=== PATIENT | female | born 1980 | race Caucasian/White ===

== ENCOUNTER 2019-01-03 20:33 | Day surgery (SDC) | payer BC ==
[2019-01-03 21:03] VITALS: BMI 24.7
[2019-01-03 21:04] LABS: Amnisure Test No Membranes Rupture (No Rupture)
[2019-01-03 21:05] LABS: Amnisure Internal Control QC ACCEPTABLE (ACCEPTABLE)
--- NOTE | 2019-01-04 01:41 | SS ---
DATE OF ADMISSION: 01/03/2019 DATE OF DISCHARGE: 01/03/2019 REGULAR PHYSICIAN: Jeffery Conway DO, MS EVALUATING PHYSICIAN: Carlos Roman MD CHIEF COMPLAINT: Suspected leakage of fluid over the last 2 days. HISTORY OF PRESENT ILLNESS: Ms. Burns is a 38-year-old white G3, P3, with an estimated date of confinement of 02/17/2019, who presents complaining of suspected leakage of fluid over the last 2 days. She states she has also had irregular contractions. Of note is the fact that she has pelvic floor dysfunction and often leaks urine. She denies associated vaginal bleeding and she denies decreased movement. Her care has been with Sara Lucero, but she is scheduled for repeat section with Dr. Conway. PAST OBSTETRICAL HISTORY: section for twins secondary to placenta previa and abruptio. This was followed by a for which she sustained pelvic floor disruption. PAST MEDICAL HISTORY: None. PAST SURGICAL HISTORY: as above. CURRENT MEDICATIONS: vitamins and iron. ALLERGIES: PENICILLIN, WHICH GIVES HER HIVES. SOCIAL HISTORY: Denies tobacco or alcohol use. FAMILY HISTORY: Unremarkable. REVIEW OF SYSTEMS: She denies nausea, vomiting, fever, chills, or vaginal bleeding. PHYSICAL EXAMINATION: VITAL SIGNS: In triage, her vital signs are stable. She is afebrile. GENERAL: She is extremely pleasant and easy to elicit history from. ABDOMEN: Soft, nontender, and gravid. On sterile speculum exam, the cervix is closed and long. There is no fluid seen in the vault. No fluid is leaking from the cervix with cough, laugh, or strain. heart rate tracing is stable. Irregular contractions are seen initially, but with hydration, these dispersed. Her fibronectin is negative and her GUEST ROOM INSPECTOR-III returns negative. ASSESSMENT: 1. 33 and 4/7th week intrauterine . 2. No evidence of ruptured membranes. PLAN: The patient will be dismissed to home. She was given complete precautions. She states that she has a followup at [facility] within the next 2 weeks. Job ID: [id number]
== END 2019-01-03 22:59 | disposition home or self-care (01) ==
LOC: L&D/OP 20:33
PROVIDERS: ATTEND Obstetrics & Gynecology
DX: O99.89 Other specified diseases and conditions complicating pregnancy, childbirth and the puerperium (principal); N89.8 Other specified noninflammatory disorders of vagina; Z3A.33 33 weeks gestation of pregnancy; Z79.899 Other long term (current) drug therapy; Z88.0 Allergy status to penicillin
CPT/HCPCS: 84112; 87480; 87510; 87660

== ENCOUNTER 2019-02-11 05:33 | Inpatient (IN) | payer BC ==
[2019-02-11 06:35] LABS: Hemoglobin 12.2 g/dL (12.0-16.0); Mean Corpuscular HGB CONC 35.7 g/dL (32.0-36.0); Mean Corpuscular Hemoglobin 29.6 pg (27.0-31.0); Mean Corpuscular Volume 82.9 fL (78.0-98.0); Mean Platelet Volume 7.7 fL (7.4-10.4); Platelet Count 292 thou/uL (130-400); RBC Distribution Width 13.1 % (11.5-14.5); Red Blood Cell (RBC) Count 4.13 mill/uL (4.20-5.40); White Blood Cell (WBC) Count 7.8 thou/uL (4.8-10.8)
[2019-02-11 06:38] VITALS: BMI 25.7
[2019-02-11] MEDS: Lactated Ringer's 1,000 ML IV SCH ×3 (07:00→23:44)
[2019-02-11] MEDS ORDERED: Bicitra 30 ML UDCUP ONE (07:01)
[2019-02-11] MEDS ORDERED: Clindamycin/D5W 900 mg/50 ml Premix Bag ONE (07:01)
[2019-02-11] MEDS ORDERED: Bicitra 30 ML UDCUP PO SCH (07:15)
[2019-02-11] MEDS ORDERED: Clindamycin/D5W 900 MG in Premix Bag 1 BAG IVPB SCH (07:15)
[2019-02-11] MEDS ORDERED: Promethazine HCl 25 MG/ML VIAL IM PRN ×2 (07:23→09:03)
[2019-02-11] MEDS ORDERED: Ondansetron PF 4 MG/2 ML Vial IVP PRN ×3 (07:23→16:26)
[2019-02-11] MEDS ORDERED: hydrALAZINE 20 MG/ML VIAL SLOW IVP PRN ×2 (07:23→16:26)
[2019-02-11] MEDS ORDERED: Gentamicin Sulfate 120 MG in Premix Bag 1 BAG IVPB SCH (07:30)
[2019-02-11 07:31] LABS: Syphilis Antibody Nonreactive (Nonreactive); Syphilis Antibody Index 0.05 S/CO (<1.00 Non-Reactive)
[2019-02-11 07:32] LABS: HBSAg Index 0.21 S/CO (0-0.99); Hep B Surf Ag Non-Reactive S/CO (NonReactive)
--- NOTE | 2019-02-11 07:55 | PDOC.LDHP ---
Labor and Delivery H&P Chief complaint: contractions, scheduled section HPI: Patient arrived to the hospital at 0530 for scheduled repeat . However , through the night, she started having contractions that were painful. Just now she has noticed some mucus coming out. She is now considering a TOLAC since her body is trying on it's own. Current gestational age (weeks): 39 Dating criteria: last menstrual period Grav: 3 Para: 2 OB History Details: G1, IVF, Twins, LTCS at 30week, indicated by Placenta Previa, sentinel bleeding event G2 2016, IVF, at 41 wwek. 7lbs 6 oz. partial 3rd degree after Vaccume assisted vaginal delivery for prolonged 2nd stage. G3 2019, spontaneous conception, 39 week 1 day, current Current complications: other (Advanced maternal age) Abnormal US findings: No Current medications: pre-jessica vitamins Previous surgical history: low tranverse CS Allergies/Adverse Reactions: Allergies Allergy/AdvReac Type Severity Reaction Status Date / Time Penicillins Allergy Severe Anaphylaxis Verified 01/03/19 20:58 Social history: none - Physical Exam Vital signs reviewed and normal: yes General: breathing through contractions Heart: RRR Lungs: nonlabored breathing Abdomen: gravid FHT: category 1 (Baseline 135, moderate variability, +Accels, no decels.) [place] contractions every: Q 7 mins - Vaginal Exam cm dilated: 3 Effacement: 75% Station: -3 - OB Labs Blood type: B RH: positive Antibody Screen: negative HIV: negative RPR: negative HEPSAg: negative 1 hour GCT: negative GBS: negative Urine drug screen: negative Rubella: immune - Assessment L&D Assessment: term patient in labor TOLAC AROMed, mec - Plan Plan: admit to L&D -: Patient would now like to TOLAC and reassess at noon If patient has made significant cervical change, proceed with TOLAC If no significant change, will proceed with repeat Counseled on importance of epidural Dr. lakhani was notified
[2019-02-11] MEDS ORDERED: Fentanyl 4 mcg/Bup 0.1% Cadd 100 ML ONE (08:18)
[2019-02-11] MEDS ORDERED: Lidocaine 1.5%/Epinephrine 1:200,000 5 ML AMPUL IJ ONE (08:51)
[2019-02-11] MEDS ORDERED: Lactated Ringer's 500 ML IV PRN (09:03)
[2019-02-11] MEDS ORDERED: Naloxone HCl 0.4 mg/ml Vial IVP PRN ×2 (09:03)
[2019-02-11] MEDS ORDERED: Acetaminophen 325 MG TAB PO PRN (09:03)
[2019-02-11] MEDS ORDERED: ePHEDrine/0.9% NaCl/PF SYRINGE 50 mg/10 ml SLOW IVP PRN (09:03)
[2019-02-11] MEDS ORDERED: diphenhydrAMINE 50 MG/ML VIAL IVP PRN (09:03)
[2019-02-11] MEDS ORDERED: Communication Order-Pharmacy FS SCH (09:15)
[2019-02-11] MEDS ORDERED: Fentanyl 4 mcg/Bupivacaine 0.1% Cassette 100 ML EPIDURAL SCH (09:15)
[2019-02-11] MEDS ORDERED: NS / Oxytocin 40 units/1000ml 1,000 ML ONE (12:45)
[2019-02-11] MEDS ORDERED: Lidocaine 1% (PF) 30 ML VIAL ONE (12:45)
--- NOTE | 2019-02-11 14:35 | PDOC.LDHP ---
Labor and Delivery H&P Allergies/Adverse Reactions: Allergies Allergy/AdvReac Type Severity Reaction Status Date / Time Penicillins Allergy Severe Anaphylaxis Verified 01/03/19 20:58
[2019-02-11] MEDS ORDERED: Milk Of Magnesia 30 ML UDCUP PO PRN (16:26)
[2019-02-11] MEDS ORDERED: Methylergonovine 0.2 MG/ML VIAL IM PRN (16:26)
[2019-02-11] MEDS ORDERED: NS / Oxytocin 40 units/1000ml 1,000 ML IV SCH (16:26)
[2019-02-11] MEDS ORDERED: Adacel (T-DAP) 0.5 ML SYRINGE IM ONE (16:26)
[2019-02-11] MEDS ORDERED: Benzocaine-Menthol 82.5 ML CAN TOP PRN (16:26)
[2019-02-11] MEDS ORDERED: Bisacodyl 10 MG SUPP PR PRN (16:26)
[2019-02-11] MEDS ORDERED: HYDROcodone/Acetaminophen 5/325 mg Tablet PO PRN ×2 (16:26)
--- NOTE | 2019-02-11 17:30 | PDOC.OPDEL ---
OB Operative/Delivery Note Delivery Dr/Surgeon: Dina Lucero Assist: Dr. Ferrell Pre-Delivery Diagnosis: active labor Procedure/Post Delivery Dx: spontaneous vaginal delivery Weeks gestation: 39 Anesthesia: epidural - Findings A Sex: male Weight: 8 lb - 1 min: 7 - 5 min: 9 - Additional Findings/Plan Placenta delivered: spontaneous Repaired Obstetrical Laceration: 1st degree Estimated blood loss: 250mL Compilations/Other Findings: Decel to 40-60bpm with pushing, unresolved with scalp stimulation. Pt was +3 at the time of decel. Russ team called and Dr. Ferrell, OB hospitalist was called to room Infant recovered, pushing efforts continued, and pt delivery vaginally with 1st tearing noted Cord gas was collected Post delivery plan: routine recovery
[2019-02-11] MEDS: Ferrous Sulfate 325 MG TAB PO SCH (20:50)
[2019-02-11] MEDS: Docusate Calcium (SURFAK) 240 MG CAP PO SCH (20:51)
[2019-02-11] MEDS: Ibuprofen 800 MG TAB PO SCH (20:51)
[2019-02-12] MEDS: Ibuprofen 800 MG TAB PO SCH ×2 (06:08→14:10)
--- NOTE | 2019-02-12 08:23 | PDOC.PP ---
Post Progress Note Post Day #: 1 Subjective: Patient is doing well. Happy with . The perineal pain hit this morning and she ended up taking a stronger pain pill. She thinks she would still like to go home if she can keep her pain controlled at home. . PO intake tolerated: yes Flatus: yes Ambulation: yes Vital Signs (12 hours) Temp Pulse Resp BP Pulse Ox 02/12/19 08:09 97.0 F L 76 12 109/60 98 02/12/19 03:40 98.2 F 70 16 101/58 L 02/11/19 23:50 97.8 F 86 16 107/54 L Weight Weight 155 lb - Physical Examination General: NAD Respiratory: non-labored breathing Abdominal: lochia (minimal), no distention, appropriately TTP Fundus firm & at: -2 Extremities: negative homans (B) Skin: no rash Perineum: non- edematous. intact, no erythema Neurological: no gross focal deficits Psychiatric: A&Ox3, normal affect Result Diagrams: 02/11/19 06:16 Additional Labs: Post Labs Blood Type B POSITIVE 02/11/19 06:16 Hep Bs Antigen Non-Reactive S/CO (NonReactive) 02/11/19 06:16 (1) 39 weeks gestation of Code(s): Z3A.39 - 39 WEEKS GESTATION OF Status: Acute (2) Vaginal after () Code(s): O34.21 - MATERNAL CARE FOR SCAR FROM PREVIOUS * DO NOT USE * Status: Acute - Assessment/Plan A: now a s/p complicated by 1st degree vaginal laceration with NML PPD 31 exam. Breastfeedign P: routine care until discharge Discharge home at 24 hrs Rx for pain medicine to pharmacy 6 week visit Pelvic rest until Post visit.
[2019-02-12] MEDS ORDERED: Prenatal Vitamin 1 TAB PO SCH (09:00)
[2019-02-12] MEDS: Ferrous Sulfate 325 MG TAB PO SCH (09:38)
[2019-02-12] MEDS: Docusate Calcium (SURFAK) 240 MG CAP PO SCH (09:39)
[2019-02-12 11:50] VITALS: BP 107/58; TEMP 97.6
== END 2019-02-12 14:35 | disposition home or self-care (01) | DRG 807 ==
LOC: L&D/OP 05:33 → L&D 05:49 → 3SW 16:35
PROVIDERS: ADMIT Obstetrics & Gynecology; ATTEND Obstetrics & Gynecology
PROC: 10E0XZZ Delivery of Products of Conception, External Approach (ICD-10-PCS; principal; 2019-02-12)
PROC: 0HQ9XZZ Repair Perineum Skin, External Approach (ICD-10-PCS; 2019-02-12)
DX: O34.211 Maternal care for low transverse scar from previous cesarean delivery (principal); Z37.0 Single live birth; Z3A.39 39 weeks gestation of pregnancy; O70.0 First degree perineal laceration during delivery
CPT/HCPCS: 36415; 82805; 85027; 86780; 86850; 86900; 86901; 87340; J2001; J3490

== ENCOUNTER 2019-02-18 12:29 | Inpatient (IN) | payer BC ==
[2019-02-18 13:29] LABS: #Lymphocytes 0.7 thou/uL (1.20-3.40); #Monocytes 0.5 thou/uL (0.11-0.59); #Neutrophils 15.8 thou/uL (1.40-6.50); %Basophils 0.2 % (0.0-1.0); %Eosinophils 0.1 % (0.0-10.0); %Monocytes 3.2 % (0.0-10.0); %Neutrophils 92.5 % (42.0-75.0); Mean Corpuscular HGB CONC 34.9 g/dL (32.0-36.0); Mean Corpuscular Volume 82.9 fL (78.0-98.0); Mean Platelet Volume 6.5 fL (7.4-10.4); Platelet Count 351 thou/uL (130-400); Red Blood Cell (RBC) Count 4.14 mill/uL (4.20-5.40); White Blood Cell (WBC) Count 17.1 thou/uL (4.8-10.8)
[2019-02-18] MEDS ORDERED: Lidocaine 1% PF 5 ML VIAL ONE (13:37)
[2019-02-18] MEDS ORDERED: Ketorolac Tromethamine 30 MG/ML VIAL ONE (13:37)
[2019-02-18] MEDS ORDERED: Metoclopramide HCl 10 MG/2 ML VIAL ONE (13:37)
[2019-02-18] MEDS ORDERED: diphenhydrAMINE 50 MG/ML VIAL ONE (13:37)
[2019-02-18] MEDS ORDERED: methylPREDNISolone Sod Succ/PF 125 MG/2 ML VIAL ONE (13:37)
[2019-02-18] MEDS ORDERED: Lidocaine 1% (PF) 30 ML VIAL ONE (13:41)
[2019-02-18 13:50] LABS: ALT (SGPT) 15 U/L (8-55); AST (SGOT) 16 U/L (5-34); Albumin 3.9 g/dL (3.5-5.0); Alkaline Phosphatase 97 U/L (40-110); Anion Gap 14 mmol/L (10-20); BUN (Urea Nitrogen) 6 mg/dL (7.0-18.7); Bilirubin, Total 0.6 mg/dL (0.2-1.2); Calc. Creatinine Clearance 0 mL/min (70-130); Calcium 9.1 mg/dL (7.8-10.44); Carbon Dioxide 21 mmol/L (22-29); Chloride 104 mmol/L (98-107); Estimated GFR-MDRD 84; Globulin 3.4 g/dL (2.4-3.5); Glucose 99 mg/dL (70-105); Potassium 3.2 mmol/L (3.5-5.1); Protein, Total 7.3 g/dL (6.0-8.3); Sodium 136 mmol/L (136-145)
[2019-02-18 13:53] LABS: Bilirubin Negative (Negative); Blood, Urine 3+ (Negative); Clarity Clear (Clear); Glucose, Urine (Dipstick) Normal (Negative); Leukocyte 500 Leu/uL (Negative); Nitrite Negative (Negative); Protein, Urine (Dipstick) Negative (Neg-Trace); Squamous Epithelial 0-3 HPF (0-3); Transitional Epithelial 0-3 HPF (None Seen); Urobilinogen Normal mg/dL (Less than 2)
[2019-02-18 14:02] LABS: Bacteria/HPF None Seen HPF (None Seen)
[2019-02-18 15:15] LABS: CSF Source CSF; Clarity Clear (Clear); Color Of CSF Supernatant COLORLESS (Colorless); Tube # 2; Tube # 4; Unspun CSF Color COLORLESS (Colorless)
[2019-02-18 15:22] LABS: CSF Source CSF; Clarity Clear (Clear); Tube # 1
[2019-02-18] MEDS ORDERED: Vancomycin HCl 500 MG VIAL ONE (15:24)
[2019-02-18 15:29] LABS: CSF, Glucose 56 mg/dl (40-70); CSF, Protein 29 mg/dL (15-40)
[2019-02-18] MEDS ORDERED: Zolpidem Tartrate 5 MG TAB PO PRN (16:48)
[2019-02-18] MEDS ORDERED: Calcium Carbonate 500 MG ChewTAB PO PRN (16:48)
[2019-02-18] MEDS ORDERED: Ondansetron ODT 4 MG TAB PO PRN (16:48)
[2019-02-18] MEDS ORDERED: HYDROcodone/Acetaminophen 5/325 mg Tablet PO PRN ×2 (16:48)
[2019-02-18] MEDS ORDERED: Ondansetron PF 4 MG/2 ML Vial IVP PRN (16:48)
[2019-02-18] MEDS ORDERED: Sodium Chloride 0.9% 1,000 ML IV SCH (17:00)
[2019-02-18 18:49] VITALS: BMI 22.7
[2019-02-18] MEDS: Acetaminophen 500 MG TAB PO PRN (20:13)
[2019-02-18] MEDS: Famotidine 20 MG TAB PO SCH (20:13)
[2019-02-18] MEDS: Potassium Chloride 20 MEQ TAB PO SCH (20:14)
[2019-02-18] MEDS ORDERED: traMADol HCl 50 MG TAB PO PRN ×2 (20:38)
[2019-02-18] MEDS: Docusate Calcium (SURFAK) 240 MG CAP PO SCH (23:37)
[2019-02-18] MEDS: Ibuprofen 800 MG TAB PO SCH (23:37)
--- NOTE | 2019-02-19 01:10 | HP ---
CHIEF COMPLAINT: Fever, headache, breast pain. HISTORY OF PRESENT ILLNESS: This is a 38-year-old G3, P3, status post spontaneous vaginal delivery on 02/11/2019. She presented to the emergency department today with a severe headache since delivery as well as a fever of 103 and right breast pain. She reports that her lochia is normal. She denies any abdominal pain, chest pain, or other complaints. She reports that it has been painful to feed her baby for the last 4 days or so, but is unsure of when her symptoms on her breast started because her headache was so distracting and so severe. She reports that her headaches are worse when lying down and she also has some neck pain and low back pain. In the emergency department, she was evaluated and diagnosed with a spinal headache and mastitis and admitted to the TESTS SUPERINTENDENT service. Anesthesia did see her in the emergency department; however, they were uncomfortable doing a blood patch with her mastitis due to fear of bacteremia. Due to concerns for possible meningitis, an LP was performed and came back normal. REVIEW OF SYSTEMS: Negative for head, eyes, ears, nose, throat, cardiovascular, respiratory, GI, , neuropsych, musculoskeletal, skin, or constitutional symptoms other than mentioned above. PAST MEDICAL HISTORY: None. PAST SURGICAL HISTORY: Low-transverse x1. TESTS SUPERINTENDENT HISTORY: Her first was IVF twins with a low-transverse at 30 weeks due to placenta previa. Her second was also an IVF with a successful at 41 weeks. Her third delivery was a term spontaneous vaginal delivery. Her only complication was advanced maternal age. MEDICATIONS: None. ALLERGIES: PENICILLIN CAUSES ANAPHYLAXIS. SOCIAL HISTORY: Negative for tobacco, alcohol, or drug abuse. PHYSICAL EXAMINATION: VITAL SIGNS: Temperature 99.2, blood pressure 117/66, pulse 79, respiratory rate 20, O2 saturation 100% on room air. GENERAL: Awake, alert, no acute distress. CHEST: Nonlabored. ABDOMEN: Soft, nontender to palpation. BREASTS: Right breast with approximately 5 cm area of erythema and induration in the right upper quadrant. Left breast appears within normal limits. There is no area of fluctuance palpable. PELVIC: Deferred. LABORATORY DATA: WBC 17.1, hemoglobin 12.0, hematocrit 34.3, neutrophils 92.5%. Chemistry; potassium 3.2, otherwise unremarkable. Lactic acid 0.7. ASSESSMENT AND PLAN: A 38-year-old, G3, P3, day 7, status post spontaneous vaginal delivery with a spinal headache as well as lactational mastitis. She will be admitted for IV Zosyn for mastitis and we will continue to follow that. We will then consult Anesthesia for her spinal headache management and appreciate any of their input and management. I ordered tramadol and ibuprofen for pain. Potassium chloride was also ordered for her mild hypokalemia. Blood cultures are pending. The patient was placed on Lovenox and SCDs while in the hospital for VTE prophylaxis. We will continue to monitor closely. Job ID: [id number]
[2019-02-19] MEDS: Vancomycin HCl 1 GM in Premix Bag 1 BAG IVPB SCH ×2 (03:34→20:45)
--- NOTE | 2019-02-19 05:58 | PDOC.FM ---
- Subjective Subjective: Patient fevered up to 100.8 overnight which responded appropriately to PO tylenol. Otherwise, SHAISTA. Patient feeling much better this AM. Denies any headache & reports right breast swelling has improved. Denies any N/V or fever/ chills on exam. States lochia is now manager of manufacturing than a period. - Objective MAR Reviewed: Yes Vital Signs & Weight: Vital Signs (12 hours) Temp Pulse Resp BP Pulse Ox 02/19/19 05:45 98.6 F 81 18 103/56 L 02/18/19 20:00 100.8 F H 87 20 117/63 99 02/18/19 18:48 99.2 F 79 20 117/66 100 Weight Weight 65.771 kg Result Diagrams: 02/18/19 13:17 02/18/19 13:17 Phys Exam - Physical Examination Constitutional: NAD HEENT: moist MMs, sclera anicteric Neck: supple, full ROM Respiratory: no wheezing, no rales, no rhonchi, clear to auscultation bilateral Cardiovascular: RRR, no significant murmur Gastrointestinal: soft, non-tender, no distention, positive bowel sounds Neurological: non-focal, moves all 4 limbs Psychiatric: normal affect, A&O x 3 Skin: no rash Deviation from normal: ~5cm area of erythema over RUQ of R breast that is slightly TTP with -: much less induration & no area of fluctuance noted Dx/Plan (1) Mastitis Code(s): N61.0 - MASTITIS WITHOUT ABSCESS Status: Acute (2) Spinal headache Code(s): G97.1 - OTHER REACTION TO SPINAL AND LUMBAR PUNCTURE Status: Acute (3) care following vaginal delivery Code(s): Z39.2 - ENCOUNTER FOR ROUTINE FOLLOW-UP Status: Acute - Plan Plan: 38YO who is day #8 s/p a @ 39.1 WGA who presented to the ED with a CC of a severe headache and R breast pain & redness who was determined to have mastitis and a spinal headache. 1. Mastitis, improved: - Breast exam notable for mastitis of RUQ of R breast with associated fever & leukocytosis on admission. Did fever overnight but per patient and nurse, erythema & swelling markedly improved this AM compared to yesterday. No area of fluctuance appreciated on exam & less TTP. - Will consider transitioning from IV vancomycin to PO abx today with clindamycin to cover for MRSA & since patient is an < 1 month old. - Will continue CASTRO motrin & PRN tramadol for pain control & tylenol PRN for fever. 2. Spinal headache, improved: - Headache resolved at time of exam this AM. - Will continue CASTRO motrin and tramadol PRN for now but will likely consult anesthesia should the headache return for the possibility of a blood patch as her CSF was negative for any signs of infection. 3. PP day #8 s/p - Aware, patient continuing to pump while in hospital. - Continue routine PP care. - F/u w/ PCP in ~5 weeks for PP visit. Dispo: Consider transitioning to PO abx and possibly discharging home later today pending severe headache does not return on CASTRO & PRN pain meds.
[2019-02-19] MEDS: Ibuprofen 800 MG TAB PO SCH ×3 (06:12→22:07)
[2019-02-19] MEDS ORDERED: FLU VACC QS2019-20(6MOS UP)/PF 60 MCG/0.5 ML SYRINGE IM ONE (09:00)
[2019-02-19] MEDS: Acetaminophen 500 MG TAB PO PRN (10:42)
[2019-02-19] MEDS: Famotidine 20 MG TAB PO SCH ×2 (10:43→21:31)
[2019-02-19] MEDS: Docusate Calcium (SURFAK) 240 MG CAP PO SCH ×2 (10:43→21:31)
[2019-02-19] MEDS: Potassium Chloride 20 MEQ TAB PO SCH (10:43)
[2019-02-19] MEDS: Enoxaparin Sodium 30 MG/0.3 ML SYRINGE SC SCH (10:44)
[2019-02-19 14:26] LABS: Vancomycin, Trough 8.6 ug/mL
[2019-02-19] MEDS ORDERED: Vancomycin HCl 1.25 GM in Sodium Chloride 0.9% 250 ML 250 ML IVPB SCH (15:00)
[2019-02-20] MEDS: Ibuprofen 800 MG TAB PO SCH ×3 (00:32→13:42)
[2019-02-20] MEDS ORDERED: Vancomycin HCl 1.25 GM in Sodium Chloride 0.9% 250 ML 250 ML IVPB SCH (06:00)
--- NOTE | 2019-02-20 07:34 | PRG ---
DATE OF SERVICE: 02/20/2019 HISTORY OF PRESENT ILLNESS: The patient is hospital day three, admitted for mastitis and a spinal headache. She is also term spontaneous vaginal delivery on 02/11/2019. The patient was admitted and was placed on vancomycin for mastitis due to her penicillin allergy. She has been on ibuprofen scheduled for her spinal headache. This morning, the patient reports that she continues to have her headache, though is more tolerable and she is on her ibuprofen. She denies fever. She denies pain to her breast when not palpated. She reports that the redness is still there. It does not appear to have spread. She continues to pump every 2 to 3 hours. PHYSICAL EXAMINATION: VITAL SIGNS: Blood pressure 119/52, temperature 98.8, pulse is 61, respiratory rate is 16. GENERAL: She at the time of our evaluation was resting comfortably, easily aroused. She appears to be in no acute distress while supine. She is alert, oriented, cooperative, and pleasant to interact with. BREASTS: Her right breast is marked from the time of admission. The redness continues to remain within those boundaries and some are receded. Her breast is still firm in that area, but does not have any fluctuance at this time and is tender, but not excessively tender. LABORATORY DATA: Spinal tap shows no white blood cells. Blood culture is still in preliminary phase, but shows no growth x2. ASSESSMENT AND PLAN: The patient is a 38-year-old female here for mastitis on vancomycin and spinal headache on ibuprofen. We are awaiting Anesthesia's final decision about placing a blood patch. Their initial concerns were due to the infection if her blood has bacteria seeded in it, consequences of using that blood to patch the spinal column membrane. We will be awaiting Anesthesia's recommendations about blood patch. In the meantime, we will continue the patient on vancomycin for treatment of her mastitis. Should the patient be able to go home later today, we will try to start her on Bactrim. Job ID: [id number]
[2019-02-20] MEDS: Famotidine 20 MG TAB PO SCH (08:55)
[2019-02-20] MEDS: Enoxaparin Sodium 30 MG/0.3 ML SYRINGE SC SCH (08:56)
[2019-02-20] MEDS: Docusate Calcium (SURFAK) 240 MG CAP PO SCH (08:56)
--- NOTE | 2019-02-20 09:58 | PDOC.EVN ---
Event Note - Event Note Event Note: Seen at bedside Dictated Sono ordered
[2019-02-20] MEDS: Acetaminophen 500 MG TAB PO PRN (09:59)
--- NOTE | 2019-02-20 10:29 | PRG ---
DATE OF SERVICE: 02/20/2019 This is a hospital day #2. WORKING DIAGNOSIS: Right breast mastitis. TIME OF DICTATION AND TIME OF EVALUATION: 9:45 to 9:55. LOCATION: Bed 303. The patient seen at bedside with Dr. Hernandez. History reviewed with the patient and plan of care discussed. SUBJECTIVE: The patient states that she is still pumping and still has a headache that has been present since her discharge. She states that her erythema/redness on the right breast is slightly increased. OBJECTIVE: 1. Vital signs reviewed. 2. Antibiotics are currently vancomycin. 3. Blood cultures currently pending. 4. Anesthesia consult still pending. I have called Labor and Delivery at bedside and I have asked for Anesthesia to come see the patient again for evaluation of a possible blood patch. Labor and delivery will call anesthesia on-call and see if they can come see her. 5. On physical exam, I have evaluated the patient. She does have erythema at the right breast from 12 o'clock to about 9 o'clock position. She does have some blanching erythema and some induration noted at that area. There is no skin changes, however. I have also done and examined compared it to the contralateral breast and there is a visible redness difference between the two sides. I did not express anything from the breast. LABORATORY ASSESSMENT: On review of the patient's lab data, last CBC was on February 18, which showed white blood cell count of 17. I have ordered a new CBC for this morning to follow up her leukocytosis, this is pending. ASSESSMENT: This is a patient, who is just over one week hospital day #2 with a working diagnosis of right breast mastitis. She is on vancomycin due to penicillin allergy. PLAN: 1. Continue antibiotics. 2. Exam performed. 3. CBC for this morning ordered just now. 4. We have ordered a breast ultrasound on the right for this morning. 5. Anesthesia consult requested for them to come follow up again. 6. The patient remains on enoxaparin 30 mg today ordered by Dr[address] Marlen Bianchi. 7. Blood cultures pending. Job ID: [id number]
[2019-02-20 11:16] LABS: #Basophils 0.1 thou/uL (0.0-0.2); #Eosinphils 0.1 thou/uL (0.0-0.7); #Lymphocytes 1.3 thou/uL (1.20-3.40); #Monocytes 0.5 thou/uL (0.11-0.59); %Basophils 1.5 % (0.0-1.0); %Eosinophils 1.7 % (0.0-10.0); %Lymphocytes 21.3 % (21.0-51.0); %Monocytes 8.3 % (0.0-10.0); %Neutrophils 67.2 % (42.0-75.0); Hemoglobin 11.4 g/dL (12.0-16.0); Mean Corpuscular HGB CONC 33.9 g/dL (32.0-36.0); Mean Corpuscular Hemoglobin 28.9 pg (27.0-31.0); Mean Corpuscular Volume 85.3 fL (78.0-98.0); Mean Platelet Volume 6.7 fL (7.4-10.4); Platelet Count 405 thou/uL (130-400); RBC Distribution Width 13.3 % (11.5-14.5); Red Blood Cell (RBC) Count 3.94 mill/uL (4.20-5.40)
--- NOTE | 2019-02-20 12:15 | ULT ---
DIRECT RIGHT BREAST ULTRASOUND: INDICATION: Mastitis. Assess for abscess. FINDINGS: Images of the right breast were performed at 11, 12, and 1 o'clock positions. There is no evidence of abscess or fluid collection. No sonographic abnormality identified. IMPRESSION: No evidence of right breast abscess identified. POS: [facility]
--- NOTE | 2019-02-20 13:32 | PDOC.EVN ---
Event Note - Event Note Event Note: Spoke with Anesthesia, they have not been by to see her yet but they do not have a plan of doing blood patch for headache.
--- NOTE | 2019-02-20 13:37 | PDOC.EVN ---
Event Note - Event Note Event Note: Blood cultures negative We will change to PO Keflex to limit time of vanco use. Awaiting right breast sono...tech at another location. Anesthesia stated will not do blood patch at this time. WBC normal now
[2019-02-20 13:45] VITALS: BP 104/65; TEMP 98.6
[2019-02-20] MEDS ORDERED: Clindamycin 150 MG CAP PO SCH (15:00)
--- NOTE | 2019-02-20 16:24 | PDOC.EVN ---
Event Note - Event Note Event Note: US negative for abscess. Will discharge with Clindamycin due to Penicillin allergy TID for total of 10 days and Tramadol for pain. Discussed need for follow up this week at [facility]
--- NOTE | 2019-02-20 16:45 | DIS ---
DATE OF ADMISSION: 02/18/2019 DATE OF DISCHARGE: 02/20/2019 PRINCIPAL DIAGNOSES: 1. Right breast mastitis. 2. Approximately one week . 3. Possible spinal headache. HOSPITAL COURSE: In brief, this patient was admitted by the on-call team on 02/18/2019 with a working diagnosis of right breast erythema, status post breast feeding with a working diagnosis of mastitis. Due to penicillin allergy of anaphylaxis, she was given IV vancomycin. Blood cultures were sent. She was kept in-house for observation of her erythema and for possible spinal headache, blood patch. Anesthesia was consulted when she was first admitted, but they were awaiting blood culture results prior to considering blood patch. I evaluated the patient on 02/20/2019, which is when I became active again on service. The patient was afebrile and her white blood cell count had returned back to normal on 02/20/2019. I did an exam on the breast on 02/20/2019 and please see the prior event note/progress note, dated today's date, for that evaluation. Her blood cultures returned negative after 48 hours on the day of discharge. I did talk to Anesthesia and they felt that blood patch was not necessary at this time. As the patient was clinically stable, afebrile, with no further leukocytosis, and blood cultures that were negative, the decision was to continue the treatment for mastitis as an outpatient. We stopped the vancomycin and changed her to clindamycin 300 mg one p.o. t.i.d. for a total of 10 days of therapy, so we will send her home for 8 days of oral antibiotics. She was told to follow up in 1 week and to continue breast-feeding and breast massage on the right to aid with milk flow. We did perform an ultrasound prior to discharge, dated 02/20/2019, to rule out abscess and no abscess was noted. Job ID: [id number]
== END 2019-02-20 17:28 | disposition home or self-care (01) | DRG 776 ==
LOC: ERS 12:29 → 3SE 18:33
PROVIDERS: ADMIT Obstetrics & Gynecology; ATTEND Obstetrics & Gynecology
PROC: 009U3ZX Drainage of Spinal Canal, Percutaneous Approach, Diagnostic (ICD-10-PCS; principal; 2019-02-18)
PROC: 3E02340 Introduction of Influenza Vaccine into Muscle, Percutaneous Approach (ICD-10-PCS; 2019-02-19)
DX: O91.23 Nonpurulent mastitis associated with lactation (principal); O89.4 Spinal and epidural anesthesia-induced headache during the puerperium; O99.285 Endocrine, nutritional and metabolic diseases complicating the puerperium; E87.6 Hypokalemia; Z88.0 Allergy status to penicillin; Z23 Encounter for immunization
CPT/HCPCS: 36415; 62270; 80053; 80202; 81003; 81015; 82945; 83605; 84157; 85025; 87040; 87070; 87205; 89051; 96365; 96366; 96367; 96375; J1200; J1885; J2001; J2765; J2930; J3370; J7050